=== PATIENT | female | born 1940 | race Caucasian/White ===

== ENCOUNTER 2020-07-08 07:49 | Day surgery (SDC) | payer OTHER ==
[~2020-07-08] VITALS: Ht 160 cm; Wt 72.6 kg
[2020-07-08] MEDS ORDERED: fentaNYL citrate 0.05 MG/ML VIAL ONE (09:59)
[2020-07-08] MEDS ORDERED: LIDOCAINE 2% 100 MG/5 ML UJET TP ONE ×2 (10:01→12:55)
[2020-07-08] MEDS ORDERED: MIDAZOLAM 5 MG/5 ML VIAL ONE (10:01)
[2020-07-08] MEDS ORDERED: fentaNYL citrate 0.05 MG/ML VIAL IVP ONE (12:55)
== END 2020-07-08 12:30 | disposition home or self-care (01) ==
LOC: MDS 07:49 → MMU 07:50 → MDS 12:30
PROVIDERS: ATTEND Internal Medicine Gastroenterology
DX: K62.5 Hemorrhage of anus and rectum (principal); D12.2 Benign neoplasm of ascending colon; D12.3 Benign neoplasm of transverse colon; D12.5 Benign neoplasm of sigmoid colon; K59.00 Constipation, unspecified; I10 Essential (primary) hypertension; K21.9 Gastro-esophageal reflux disease without esophagitis; Z90.49 Acquired absence of other specified parts of digestive tract; Z98.890 Other specified postprocedural states; Z20.828 Contact with and (suspected) exposure to other viral communicable diseases; Z79.899 Other long term (current) drug therapy
CPT/HCPCS: 45380; 45381; 45385; 88305; 88313; 88342; J3010; U0003; J2250